=== PATIENT | male | born 2000 | race Caucasian/White ===

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

== ENCOUNTER 2022-01-10 19:19 | Emergency (ER) | payer OTHER ==
[2022-01-10] MEDS ORDERED: Sodium Chloride 0.9% 1000 ML 1,000 ML IV STA (19:23)
--- NOTE | 2022-01-10 19:32 | ERPHSYRPT ---
- History of Present Illness Time Seen by Provider: 01/10/22 19:28 Source: patient, EMS Exam Limitations: other (Learning disability) Physician History: Patient is a 21-year-old male with some history of anxiety, learning disability, and perhaps some slight autism. He is presenting with anxiety because he thinks he was given a vape with either pot or meth and it. He is uncertain what he smoked. He was given this vape by his aunt. He states he wishes to speak to aw enforcement. Timing/Duration: yesterday Severity: mild Associated Symptoms: other (Anxiety) Allergies/Adverse Reactions: shellfish derived Allergy (Verified 01/10/22 19:36) Home Medications: Prazosin HCl 2 mg PO HS 03/31/19 [History] Bupropion HCl [Wellbutrin Xl] 300 mg PO DAILY 12/02/20 [History] Trazodone HCl [Desyrel] 100 mg PO HS 12/02/20 [History] hydrOXYzine HCL [Hydroxyzine HCl] 50 mg PO TID PRN 07/04/21 [History] Lumateperone Tosylate [Caplyta] 42 mg PO DAILY 01/10/22 [History] amantadine HCL [Amantadine] 100 mg PO BID 01/10/22 [History] Hx Tetanus, Diphtheria Vaccination/Date Given: Yes Hx Influenza Vaccination/Date Given: No Hx Pneumococcal Vaccination/Date Given: No Travel Risk - Vaccine Status Have you recieved a Covid-19 vaccination: No Manager Trainee: Unknown - Vaccination Dates Dates if Unknown: unsure - Review of Systems Constitutional: No Fever, No Chills Eyes: No Symptoms Ears, Nose, & Throat: No Symptoms Respiratory: No Cough, No Dyspnea Cardiac: No Chest Pain, No Edema, No Syncope Abdominal/Gastrointestinal: No Abdominal Pain, No Nausea, No Vomiting, No Diarr hea Genitourinary Symptoms: No Dysuria Musculoskeletal: No Back Pain, No Neck Pain Skin: No Rash Neurological: No Dizziness, No Focal Weakness, No Sensory Changes Psychological: Drug Abuse, Anxiety, Depression, No Suicidal Ideations, No Homicidal Ideations Endocrine: No Symptoms All Other Systems: Reviewed and Negative - Past Medical History Pertinent Past Medical History: Yes Neurological History: No Pertinent History ENT History: No Pertinent History Cardiac History: No Pertinent History Respiratory History: No Pertinent History Endocrine Medical History: No Pertinent History Musculoskeletal History: No Pertinent History GI Medical History: No Pertinent History History: No Pertinent History Psycho-Social History: Bipolar Male Reproductive Disorders: No Pertinent History Other Medical History: unsure of psych diagnosis, hx of tbi, pt unsure of cause - Past Surgical History Past Surgical History: No Neuro Surgical History: No Pertinent History Cardiac: No Pertinent History Respiratory: No Pertinent History Gastrointestinal: No Pertinent History Genitourinary: No Pertinent History Musculoskeletal: No Pertinent History Male Surgical History: No Pertinent History - Social History Smoking Status: Current every day smoker How long have you smoked: 3yrs Exposure to second hand smoke: Yes Drug Use: marijuana Patient Lives Alone: No (grandmother) Significant Family History: no pertinent family hx - Nursing Vital Signs Nursing Vital Signs: Initial Vital Signs Temperature 98.7 F 01/10/22 19:20 Pulse Rate 87 01/10/22 19:20 Respiratory Rate 20 01/10/22 19:20 Blood Pressure 121/60 01/10/22 19:20 O2 Sat by Pulse Oximetry 99 01/10/22 19:20 Pain Scale Pain Intensity 0 - Physical Exam General Appearance: mild distress, alert Eye Exam: PERRL/EOMI, eyes nml inspection Ears, Nose, Throat Exam: normal ENT inspection, TMs normal, pharynx normal, moist mucous membranes Neck Exam: normal inspection, non-tender, supple, full range of motion Respiratory Exam: normal breath sounds, lungs clear, No respiratory distress Cardiovascular Exam: regular rate/rhythm, normal heart sounds, normal peripheral pulses Gastrointestinal/Abdomen Exam: soft, normal bowel sounds, No tenderness, No mass Back Exam: normal inspection, normal range of motion, No CVA tenderness, No vertebral tenderness Extremity Exam: normal inspection, normal range of motion, pelvis stable Neurologic Exam: alert, oriented x 3, cooperative, nml cerebellar function, nml station & gait, sensation nml, agitation, other (Very anxious), No motor deficits Skin Exam: normal color, warm, dry, No rash Lymphatic Exam: No adenopathy SpO2 Interpretation: normal SpO2: 99 O2 Delivery: Room Air - Course Nursing assessment & vital signs reviewed: Yes Ordered Tests: Active Orders 24 hr Category Date Time Status EKG-ER Only STAT Care 01/10/22 19:23 Active IV Insertion STAT Care 01/10/22 19:47 Active ACETAMINOPHEN Stat Lab 01/10/22 20:05 Completed CBC W DIFF Stat Lab 01/10/22 20:05 Completed CMP Stat Lab 01/10/22 20:05 Completed SALICYLATE Stat Lab 01/10/22 20:05 Completed UA W/RFX CULTURE Stat Lab 01/10/22 19:47 Completed Urine Triage Profile Stat Lab 01/10/22 19:47 Completed Medication Summary Discontinued Medications Generic Name Dose Route Start Last Admin Trade Name Benji PRN Reason Stop Dose Admin Sodium Chloride 1,000 mls @ 999 mls/hr 01/10/22 19:23 01/10/22 20:41 Sodium Chloride 0.9% 1000 Ml IV 01/10/22 20:23 Infused .Q1H1M STA Infusion Sodium Chloride Confirm 01/10/22 19:37 Sodium Chloride 0.9% 1000 Ml Administered 01/10/22 19:38 Dose 1,000 mls @ ud .ROUTE .STK-MED ONE Lab/Rad Data: Laboratory Result Diagrams 01/10/22 20:05 01/10/22 20:05 Laboratory Results 01/10/22 01/10/22 01/10/22 Range/Units 20:05 20:05 19:47 WBC 8.1 (4.0-10.5) x10^3/uL RBC 4.83 (4.1-5.6) x10^6/uL Hgb 12.6 (12.5-18.0) g/dL Hct 39.3 L (42-50) % MCV 81.4 (78-100) fL MCH 26.1 (26-32) pg MCHC 32.1 (32-36) g/dL RDW 12.0 (11.5-14.0) % Plt Count 298 (150-450) x10^3/uL MPV 9.4 (7.5-11.0) fL Gran % 61.0 (36.0-66.0) % Immature Gran % (Auto) 0.2 (0.00-0.4) % Nucleat RBC Rel Count 0.0 (0.00-0.1) % Eos # (Auto) 0.18 (0-0.5) x10^3/uL Immature Gran # (Auto) 0.02 (0.00-0.03) x10^3u/L Absolute Lymphs (auto) 1.89 (1.0-4.6) x10^3/uL Absolute Monos (auto) 1.04 (0.0-1.3) x10^3/uL Absolute Nucleated RBC 0.00 (0.00-0.01) x10^3u/L Lymphocytes % 23.3 L (24.0-44.0) % Monocytes % 12.8 H (0.0-12.0) % Eosinophils % 2.2 (0.00-5.0) % Basophils % 0.5 (0.0-0.4) % Absolute Granulocytes 4.93 (1.4-6.9) x10^3/uL Basophils # 0.04 (0-0.4) x10^3/uL Sodium 140 (137-145) mmol/L Potassium 3.7 (3.5-5.1) mmol/L Chloride 103 (98-107) mmol/L Carbon Dioxide 28 (22-30) mmol/L Anion Gap 12.7 (5-15) MEQ/L BUN 5 L (9-20) mg/dL Creatinine 0.87 (0.66-1.25) mg/dL Estimated GFR > 60.0 ML/MIN Glucose 85 (74-106) mg/dL Calcium 9.3 (8.4-10.2) mg/dL Total Bilirubin 0.70 (0.2-1.3) mg/dL AST 60 H (17-59) U/L ALT 112 H (0-50) U/L Alkaline Phosphatase 103 (38-126) U/L Serum Total Protein 7.2 (6.3-8.2) g/dL Albumin 4.5 (3.5-5.0) g/dL Urinalys Dipstick Clnc MAIN LAB Urine Color DARK YELLOW (YELLOW) Urine Appearance SLIGHTLY CLOUDY A (CLEAR) Urine pH 5.5 (5-6) Ur Specific [place] >=1.030 A (1.005-1.025) POC Urine Protein Conf 30 A (Negative) Urine Ketones TRACE A (NEGATIVE) Urine Nitrite NEGATIVE (NEGATIVE) Urine Bilirubin MODERATE A (NEGATIVE) Urine Urobilinogen 1 A (0-1) mg/dL Urine Leukocytes NEGATIVE (NEGATIVE) Urine WBC (Auto) 3-5 A (0-5) /HPF Urine RBC (Auto) 0-2 (0-2) /HPF U Epithel Cells (Auto) NONE (FEW) /HPF Urine Bacteria (Auto) RARE (NEGATIVE) /HPF Urine RBC NEGATIVE (0-5) Juanjo/ul Calcium Oxalate Crystal 6-10 A (NEGATIVE) /HPF Urine Mucus (Auto) MANY A (NEGATIVE) /HPF Urine Sperm (Auto) PRESENT A (NEGATIVE) /HPF Ur Culture Indicated? NO Urine Glucose NEGATIVE (NEGATIVE) mg/dL Salicylates < 1.0 L (2-20) mg/dL Urine Opiates Level (NEGATIVE) Ur Methadone (NEGATIVE) Acetaminophen < 10 L (10-30) ug/ml Urine Barbiturates (NEGATIVE) Ur Phencyclidine (PCP) (NEGATIVE) Urine Amphetamine (NEGATIVE) U Benzodiazepine Level (NEGATIVE) Urine Cocaine (NEGATIVE) Urine Marijuana (THC) (NEGATIVE) 01/10/22 Range/Units 19:47 WBC (4.0-10.5) x10^3/uL RBC (4.1-5.6) x10^6/uL Hgb (12.5-18.0) g/dL Hct (42-50) % MCV (78-100) fL MCH (26-32) pg MCHC (32-36) g/dL RDW (11.5-14.0) % Plt Count (150-450) x10^3/uL MPV (7.5-11.0) fL Gran % (36.0-66.0) % Immature Gran % (Auto) (0.00-0.4) % Nucleat RBC Rel Count (0.00-0.1) % Eos # (Auto) (0-0.5) x10^3/uL Immature Gran # (Auto) (0.00-0.03) x10^3u/L Absolute Lymphs (auto) (1.0-4.6) x10^3/uL Absolute Monos (auto) (0.0-1.3) x10^3/uL Absolute Nucleated RBC (0.00-0.01) x10^3u/L Lymphocytes % (24.0-44.0) % Monocytes % (0.0-12.0) % Eosinophils % (0.00-5.0) % Basophils % (0.0-0.4) % Absolute Granulocytes (1.4-6.9) x10^3/uL Basophils # (0-0.4) x10^3/uL Sodium (137-145) mmol/L Potassium (3.5-5.1) mmol/L Chloride (98-107) mmol/L Carbon Dioxide (22-30) mmol/L Anion Gap (5-15) MEQ/L BUN (9-20) mg/dL Creatinine (0.66-1.25) mg/dL Estimated GFR ML/MIN Glucose (74-106) mg/dL Calcium (8.4-10.2) mg/dL Total Bilirubin (0.2-1.3) mg/dL AST (17-59) U/L ALT (0-50) U/L Alkaline Phosphatase (38-126) U/L Serum Total Protein (6.3-8.2) g/dL Albumin (3.5-5.0) g/dL Urinalys Dipstick Clnc Urine Color (YELLOW) Urine Appearance (CLEAR) Urine pH (5-6) Ur Specific [place] (1.005-1.025) POC Urine Protein Conf (Negative) Urine Ketones (NEGATIVE) Urine Nitrite (NEGATIVE) Urine Bilirubin (NEGATIVE) Urine Urobilinogen (0-1) mg/dL Urine Leukocytes (NEGATIVE) Urine WBC (Auto) (0-5) /HPF Urine RBC (Auto) (0-2) /HPF U Epithel Cells (Auto) (FEW) /HPF Urine Bacteria (Auto) (NEGATIVE) /HPF Urine RBC (0-5) Juanjo/ul Calcium Oxalate Crystal (NEGATIVE) /HPF Urine Mucus (Auto) (NEGATIVE) /HPF Urine Sperm (Auto) (NEGATIVE) /HPF Ur Culture Indicated? Urine Glucose (NEGATIVE) mg/dL Salicylates (2-20) mg/dL Urine Opiates Level NEGATIVE (NEGATIVE) Ur Methadone NEGATIVE (NEGATIVE) Acetaminophen (10-30) ug/ml Urine Barbiturates NEGATIVE (NEGATIVE) Ur Phencyclidine (PCP) NEGATIVE (NEGATIVE) Urine Amphetamine NEGATIVE (NEGATIVE) U Benzodiazepine Level NEGATIVE (NEGATIVE) Urine Cocaine NEGATIVE (NEGATIVE) Urine Marijuana (THC) POSITIVE (NEGATIVE) - Progress Progress: improved - Departure Departure Disposition: Home Clinical Impression: Marijuana use, Anxiety Condition: Stable Critical Care Time: No Referrals: RAYRAY LOPEZ [Primary Care Provider] - Follow up/PCP as directed Instructions: Anxiety, Adult (DC)
[2022-01-10] MEDS ORDERED: Sodium Chloride 0.9% 1000 ML 1,000 ML ONE (19:37)
[2022-01-10 20:14] LABS: Absolute Neutrophil Ct (ANC) 4.93 x10^3/uL (1.4-6.9); Basophil (Absolute #) 0.04 x10^3/uL (0-0.4); Eosinophil % 2.2 % (0.00-5.0); Eosinophil (Absolute #) 0.18 x10^3/uL (0-0.5); Hematocrit 39.3 % (42-50); Hemoglobin 12.6 g/dL (12.5-18.0); Lymphocyte (Absolute #) 1.89 x10^3/uL (1.0-4.6); Lymphocytes % 23.3 % (24.0-44.0); Mean Cell Volume 81.4 fL (78-100); Mean Corpuscular Hemoglobin 26.1 pg (26-32); Mean Corpuscular Hgb Concent. 32.1 g/dL (32-36); Mean Platelet Volume 9.4 fL (7.5-11.0); Monocyte (Absolute #) 1.04 x10^3/uL (0.0-1.3); Monocytes % 12.8 % (0.0-12.0); Platelet Count 298 x10^3/uL (150-450); Red Blood Count 4.83 x10^6/uL (4.1-5.6); White Blood Count 8.1 x10^3/uL (4.0-10.5)
[2022-01-10 20:32] LABS: Amphetamine,Urine NEGATIVE (NEGATIVE); Barbiturate,Urine NEGATIVE (NEGATIVE); Benzodiazepine,Urine NEGATIVE (NEGATIVE); Cocaine,Urine NEGATIVE (NEGATIVE); Methadone,Urine NEGATIVE (NEGATIVE); Opiate,Urine NEGATIVE (NEGATIVE); PCP,Urine NEGATIVE (NEGATIVE); THC,Urine POSITIVE (NEGATIVE)
[2022-01-10 20:33] LABS: Bacteria RARE /HPF (NEGATIVE); Mucus MANY /HPF (NEGATIVE); RBC 0-2 /HPF (0-2); Sperm PRESENT /HPF (NEGATIVE)
[2022-01-10 20:33] LABS: ACETAMINOPHEN < 10 ug/ml (10-30); ALBUMIN 4.5 g/dL (3.5-5.0); ALKALINE PHOSPHATASE 103 U/L (38-126); ANION GAP 12.7 MEQ/L (5-15); BLOOD UREA NITROGEN 5 mg/dL (9-20); CHLORIDE 103 mmol/L (98-107); Calcium 9.3 mg/dL (8.4-10.2); Carbon Dioxide 28 mmol/L (22-30); Creatinine 1 0.87 mg/dL (0.66-1.25); EST GLOMERULAR FILTRATION RATE > 60.0 ML/MIN; Glucose 85 mg/dL (74-106); Potassium 3.7 mmol/L (3.5-5.1); SALICYLATE < 1.0 mg/dL (2-20); SGOT/AST 60 U/L (17-59); SGPT/ALT 112 U/L (0-50); SODIUM 140 mmol/L (137-145); Total Protein 7.2 g/dL (6.3-8.2)
[2022-01-10 20:34] LABS: Appearance SLIGHTLY CLOUDY (CLEAR); Bilirubin MODERATE (NEGATIVE); Dipstick done @ ? MAIN LAB; Glucose NEGATIVE (NEGATIVE); Ketones TRACE (NEGATIVE); Nitrite NEGATIVE (NEGATIVE); Ph 5.5 (5-6); Protein,Urine Dip 30 (Negative); RBC NEGATIVE Ery/ul (0-5); Specific Gravity >=1.030 (1.005-1.025); Urobilinogen 1 mg/dL (0-1)
[2022-01-10 20:36] LABS: Urine Cultured Indicated? NO
[2022-01-10 21:01] VITALS: BP 134/49; PULSE 78; O2SAT 98
== END 2022-01-10 21:06 | disposition home or self-care (01) ==
LOC: ED 19:19
DX: F41.9 Anxiety disorder, unspecified (principal); F12.90 Cannabis use, unspecified, uncomplicated; Z72.0 Tobacco use; Z79.899 Other long term (current) drug therapy; Z28.310 Unvaccinated for COVID-19
CPT/HCPCS: 36000; 36415; 80053; 80307; 81015; 85025; 93005; 96360; 99284

== ENCOUNTER 2022-03-13 07:02 | Emergency (ER) | payer OTHER ==
[2022-03-13 07:19] VITALS: O2SAT 98
--- NOTE | 2022-03-13 07:54 | ERPHSYRPT ---
- History of Present Illness Source: patient Exam Limitations: no limitations Patient Subjective Stated Complaint: Pt states "I pulled a scab out of my nose on the right side and I can smell the infection. It had yellow on it." Triage Nursing Assessment: Pt presented alert and oriented X 3, skin pwd.pt ambulates with an upright steady gait able to speak in full sentences. pt in no apparent respiratory distress. Physician History: 21 yo wm w R nares pain after picking a scab yesterday. Pt called PCP who states that he should come to the ER and get checked out. Pain is mild. He denies fever/cough/coryza/nausea/vomiting/diarrhea/ESPINOZA/trauma. Timing/Duration: abrupt onset ENT Location: nose Prearrival Treatment: no prearrival treatment Modifying Factors: Improves With: other (Picking) Associated Symptoms: denies symptoms, No nasal congestion/drainage, No nasal foreign body Allergies/Adverse Reactions: shellfish derived Allergy (Verified 01/10/22 19:36) Home Medications: Prazosin HCl 2 mg PO HS 03/31/19 [History] Bupropion HCl [Wellbutrin Xl] 300 mg PO DAILY 12/02/20 [History] Trazodone HCl [Desyrel] 100 mg PO HS 12/02/20 [History] hydrOXYzine HCL [Hydroxyzine HCl] 50 mg PO TID PRN 07/04/21 [History] Lumateperone Tosylate [Caplyta] 42 mg PO DAILY 01/10/22 [History] amantadine HCL [Amantadine] 100 mg PO BID 01/10/22 [History] Hx Tetanus, Diphtheria Vaccination/Date Given: Yes Hx Influenza Vaccination/Date Given: No Hx Pneumococcal Vaccination/Date Given: No Immunizations Up to Date: Yes Travel Risk - International Travel Have you traveled outside of the country in past 3 weeks: No - Coronavirus Screening Are you exhibiting any of the following symptoms?: No Close contact with a COVID-19 positive Pt in past 14-21 Days: No - Vaccine Status Have you recieved a Covid-19 vaccination: No 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 - Vaccination Dates Dates if Unknown: unsure - Review of Systems Constitutional: No Symptoms Eyes: No Symptoms Respiratory: No Symptoms Cardiac: No Symptoms Abdominal/Gastrointestinal: No Symptoms Genitourinary Symptoms: No Symptoms Musculoskeletal: No Symptoms Skin: No Symptoms Neurological: No Symptoms Psychological: No Symptoms Endocrine: No Symptoms Hematologic/Lymphatic: No Symptoms Immunological/Allergic: No Symptoms - Past Medical History Pertinent Past Medical History: Yes Neurological History: No Pertinent History ENT History: No Pertinent History Cardiac History: No Pertinent History Respiratory History: No Pertinent History Endocrine Medical History: No Pertinent History Musculoskeletal History: No Pertinent History GI Medical History: No Pertinent History History: No Pertinent History Psycho-Social History: Bipolar Male Reproductive Disorders: No Pertinent History Other Medical History: unsure of psych diagnosis, hx of tbi, pt unsure of cause - Past Surgical History Past Surgical History: No Neuro Surgical History: No Pertinent History Cardiac: No Pertinent History Respiratory: No Pertinent History Gastrointestinal: No Pertinent History Genitourinary: No Pertinent History Musculoskeletal: No Pertinent History Male Surgical History: No Pertinent History - Social History Smoking Status: Current every day smoker How long have you smoked: 3yrs Exposure to second hand smoke: Yes Drug Use: marijuana Patient Lives Alone: No (grandmother) Significant Family History: no pertinent family hx - Nursing Vital Signs Nursing Vital Signs: Initial Vital Signs Temperature 98.5 F 03/13/22 07:16 Pulse Rate 76 03/13/22 07:16 Respiratory Rate 20 03/13/22 07:16 Blood Pressure 130/66 03/13/22 07:16 O2 Sat by Pulse Oximetry 98 03/13/22 07:16 Pain Scale Pain Intensity 0 WNL - Physical Exam General Appearance: no apparent distress Eye Exam: bilateral eye: normal inspection, PERRL, EOMI Ear Exam: bilateral ear: auricle normal, canal normal, TM normal Nasal Exam: dried blood (Very small area R lateral nostril which is slightly edematous and scabbed over) Throat Exam: normal, pharynx normal Neck Exam: normal inspection, non-tender, supple, full range of motion, trachea midline Cardiovascular/Respiratory Exam: normal breath sounds, regular rate/rhythm, heart sounds normal Abdominal Exam: non-tender, soft, no organomegaly Neurologic Exam: alert, oriented x 3, cooperative, basin tender II-XII nml as tested, normal mood/affect, nml cerebellar function, nml station & gait, sensation nml Skin Exam: normal color, warm, dry SpO2 Interpretation: normal SpO2: 98 O2 Delivery: Room Air - Course Nursing assessment & vital signs reviewed: Yes - Progress Progress Note: 03/13/22 07:57 Pt w stable papule R lateral nares which is stable. Pain/scabbing most likely due to pt picking nose/lesion. 03/13/22 08:19 Counseled pt/family regarding: diagnosis, need for follow-up - Departure Departure Disposition: Home Clinical Impression: Nasal abrasion Condition: Stable Critical Care Time: No Referrals: RAYRAY LOPEZ [ACTIVE STAFF] - Follow up/PCP as directed Additional Instructions: Do not pick nose Apply Bactroban to right nostril twice a day for 7-10 days Follow up with your family MD as needed Return to ER for worsening of condition Irrigate right nostril with saline 1-2 times a day Prescriptions: Mupirocin [Bactroban OINTMENT] 1 applic INTRANASAL BID 10 Days #22 mg pe
[2022-03-13 08:02] VITALS: BP 120/64; PULSE 72
== END 2022-03-13 08:17 | disposition home or self-care (01) ==
LOC: ED 07:02
DX: S00.31XA Abrasion of nose, initial encounter (principal); Z79.899 Other long term (current) drug therapy; Z28.310 Unvaccinated for COVID-19; Z72.0 Tobacco use
CPT/HCPCS: 99281

== ENCOUNTER 2022-08-27 21:59 | Emergency (ER) | payer OTHER ==
[2022-08-27 22:17] VITALS: O2SAT 97
[2022-08-27 22:25] LABS: Absolute Neutrophil Ct (ANC) 7.47 x10^3/uL (1.4-6.9); BASOPHIL % 0.4 % (0.0-0.4); Basophil (Absolute #) 0.05 x10^3/uL (0-0.4); Eosinophil % 2.1 % (0.00-5.0); Eosinophil (Absolute #) 0.25 x10^3/uL (0-0.5); Hematocrit 43.7 % (42-50); Hemoglobin 14.3 g/dL (12.5-18.0); IMMATURE GRAN # 0.06 x10^3u/L (0.00-0.03); IMMATURE GRAN % 0.5 % (0.00-0.4); Lymphocyte (Absolute #) 3.22 x10^3/uL (1.0-4.6); Lymphocytes % 27.1 % (24.0-44.0); Mean Cell Volume 82.1 fL (78-100); Mean Corpuscular Hemoglobin 26.9 pg (26-32); Mean Corpuscular Hgb Concent. 32.7 g/dL (32-36); Mean Platelet Volume 9.9 fL (7.5-11.0); Monocyte (Absolute #) 0.83 x10^3/uL (0.0-1.3); Neutrophil % 62.9 % (36.0-66.0); Platelet Count 338 x10^3/uL (150-450); Red Blood Count 5.32 x10^6/uL (4.1-5.6); Red Cell Distribution Width 13.5 % (11.5-14.0); White Blood Count 11.9 x10^3/uL (4.0-10.5)
[2022-08-27 22:38] LABS: ACETAMINOPHEN < 10 ug/ml (10-30); ALBUMIN 4.6 g/dL (3.5-5.0); ALKALINE PHOSPHATASE 79 U/L (38-126); ANION GAP 14.8 MEQ/L (5-15); BLOOD UREA NITROGEN 6 mg/dL (9-20); CHLORIDE 105 mmol/L (98-107); Calcium 8.9 mg/dL (8.4-10.2); Carbon Dioxide 23 mmol/L (22-30); Creatinine 1 0.73 mg/dL (0.66-1.25); EST GLOMERULAR FILTRATION RATE > 60.0 ML/MIN; ETHYL ALCOHOL < 10 mg/dL (0-10); Glucose 105 mg/dL (74-106); Potassium 3.4 mmol/L (3.5-5.1); SALICYLATE < 1.0 mg/dL (2-20); SGOT/AST 31 U/L (17-59); SGPT/ALT 31 U/L (0-50); SODIUM 140 mmol/L (137-145); Total Protein 7.9 g/dL (6.3-8.2)
[2022-08-27 22:59] LABS: Appearance Cloudy (Clear); Bacteria None Seen /HPF (None Seen); Bilirubin Negative (Negative); Blood Negative (Negative); Epithelial Cells None Seen /HPF (None Seen); Glucose, Urine Negative (Negative); Hyaline Casts NONE SEEN /LPF (0-2); Ketones Negative (Negative); Leukocyte Esterase Negative (Negative); Nitrite Negative (Negative); Protein,Urine Dip Trace (Negative); RBC 21-50 /HPF (0-5); Specific Gravity >=1.030 (1.005-1.030)
[2022-08-27 23:03] LABS: Amphetamine,Urine NEGATIVE (NEGATIVE); Barbiturate,Urine NEGATIVE (NEGATIVE); Benzodiazepine,Urine NEGATIVE (NEGATIVE); Cocaine,Urine NEGATIVE (NEGATIVE); Methadone,Urine NEGATIVE (NEGATIVE); Opiate,Urine NEGATIVE (NEGATIVE); PCP,Urine NEGATIVE (NEGATIVE); THC,Urine POSITIVE (NEGATIVE)
[2022-08-27 23:04] LABS: ADD URINE CULTURE? NO (NO)
--- NOTE | 2022-08-27 23:16 | ERPHSYRPT ---
- History of Present Illness Time Seen by Provider: 08/27/22 22:02 Source: patient, police Exam Limitations: no limitations Patient Subjective Stated Complaint: police states that pt is here on a ed [facility] Triage Nursing Assessment: pt ambulated into the er; pt is axo x3; skin PDW; abrasions present to left forearm; no respiratory distress present; hypertensive; tachycardic Physician History: 22 years old male with a history of anxiety/depression, multiple psychiatric admissions is brought in the ER by PD with aggressive behavior. Patient reports he has been homeless lately and living in a car with his mom. He is frustrated, had arguments with his mother and had some suicidal/homicidal comments. Patient reports cutting his arm with a knife. Multiple superficial cuts noted. Denies any specific plan of suicide/homicide. Denies any drug use. Patient reports lately he has been out of his medications and his behavior not well controlled. Timing/Duration: today Severity of Symptoms-Max: severe Severity of Symptoms-Current: mild Context related to: parent Suicidal thoughts: gesture Associated Symptoms: angry, agitated, anxiety, frustrated Previous symptoms: same symptoms as today Allergies/Adverse Reactions: shellfish derived Allergy (Verified 01/10/22 19:36) Home Medications: Prazosin HCl 2 mg PO HS 03/31/19 [History] Trazodone HCl [Desyrel] 100 mg PO HS 12/02/20 [History] hydrOXYzine HCL [Hydroxyzine HCl] 50 mg PO TID PRN 07/04/21 [History] Lumateperone Tosylate [Caplyta] 42 mg PO DAILY 01/10/22 [History] amantadine HCL [Amantadine] 100 mg PO BID 01/10/22 [History] Haloperidol [Haldol] 5 mg PO BID 08/27/22 [History] Hx Tetanus, Diphtheria Vaccination/Date Given: Yes Hx Influenza Vaccination/Date Given: No Hx Pneumococcal Vaccination/Date Given: No Travel Risk - International Travel Have you traveled outside of the country in past 3 weeks: No - Coronavirus Screening Are you exhibiting any of the following symptoms?: No Close contact with a COVID-19 positive Pt in past 14-21 Days: No - Vaccine Status Have you recieved a Covid-19 vaccination: No Blocker Hand: Unknown - Vaccination Dates Dates if Unknown: unsure - Past Medical History Pertinent Past Medical History: Yes Neurological History: No Pertinent History ENT History: No Pertinent History Cardiac History: No Pertinent History Respiratory History: No Pertinent History Endocrine Medical History: No Pertinent History Musculoskeletal History: No Pertinent History GI Medical History: No Pertinent History History: No Pertinent History Psycho-Social History: Bipolar Male Reproductive Disorders: No Pertinent History Other Medical History: unsure of psych diagnosis, hx of tbi, pt unsure of cause - Past Surgical History Past Surgical History: No Neuro Surgical History: No Pertinent History Cardiac: No Pertinent History Respiratory: No Pertinent History Gastrointestinal: No Pertinent History Genitourinary: No Pertinent History Musculoskeletal: No Pertinent History Male Surgical History: No Pertinent History - Social History Smoking Status: Current every day smoker How long have you smoked: 3yrs Exposure to second hand smoke: Yes Drug Use: marijuana Patient Lives Alone: No (grandmother) Significant Family History: no pertinent family hx - Review of Systems Constitutional: No Symptoms Eyes: No Symptoms Ears, Nose, & Throat: No Symptoms Respiratory: No Symptoms Cardiac: No Symptoms Abdominal/Gastrointestinal: No Symptoms Genitourinary Symptoms: No Symptoms Musculoskeletal: No Symptoms Skin: No Symptoms Neurological: No Symptoms Psychological: Anxiety, Depression, Suicidal Ideations, Homicidal Ideations, Mood Changes Endocrine: No Symptoms Hematologic/Lymphatic: No Symptoms Immunological/Allergic: No Symptoms - Nursing Vital Signs Nursing Vital Signs: Initial Vital Signs Temperature 98.4 F 08/27/22 22:05 Pulse Rate 106 H 08/27/22 22:05 Respiratory Rate 18 08/27/22 22:05 Blood Pressure 163/92 08/27/22 22:05 O2 Sat by Pulse Oximetry 97 08/27/22 22:05 Pain Scale Pain Intensity 0 - Physical Exam General Appearance: no apparent distress, alert, anxiety Eyes, Ears, Nose, Throat Exam: normal ENT inspection Neck Exam: normal inspection, non-tender, supple, full range of motion Respiratory Exam: normal breath sounds, lungs clear Cardiovascular Exam: regular rate/rhythm, normal heart sounds Gastrointestinal/Abdominal Exam: soft, normal bowel sounds, No tenderness Extremities Exam: normal inspection, normal range of motion Current Suicidality: denies suicide plan 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, calm, counter 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 tested, oriented x 3, No normal mood/affect Appearance: appropriate appearance, appropriate insight, neat, no memory impairment Behavior/Eye Contact/Speech: alert & cooperative, cooperative, good eye contact, normal speech, avoids eye contact Thoughts/Hallucinations: normal thought pattern, no apparent hallucination Skin Exam: normal color SpO2 Interpretation: normal SpO2: 97 O2 Delivery: Room Air Ordered Tests: Medication Summary Discontinued Medications Generic Name Dose Route Start Last Admin Trade Name Freq PRN Reason Stop Dose Admin Trimethoprim/Sulfamethoxazole 1 tab 08/27/22 23:17 08/27/22 23:23 Smz/Tmp Ds Tablet 1 Tablet PO 08/27/22 23:18 Not Given STAT STA Lab/Rad Data: Laboratory Result Diagrams 08/27/22 22:21 08/27/22 22:21 Laboratory Results 08/28/22 08/27/22 08/27/22 Range/Units 00:05 22:21 22:21 WBC 11.9 H (4.0-10.5) x10^3/uL RBC 5.32 (4.1-5.6) x10^6/uL Hgb 14.3 (12.5-18.0) g/dL Hct 43.7 (42-50) % MCV 82.1 (78-100) fL MCH 26.9 (26-32) pg MCHC 32.7 (32-36) g/dL RDW 13.5 (11.5-14.0) % Plt Count 338 (150-450) x10^3/uL MPV 9.9 (7.5-11.0) fL Gran % 62.9 (36.0-66.0) % Immature Gran % (Auto) 0.5 H (0.00-0.4) % Nucleat RBC Rel Count 0.0 (0.00-0.1) % Eos # (Auto) 0.25 (0-0.5) x10^3/uL Immature Gran # (Auto) 0.06 H (0.00-0.03) x10^3u/L Absolute Lymphs (auto) 3.22 (1.0-4.6) x10^3/uL Absolute Monos (auto) 0.83 (0.0-1.3) x10^3/uL Absolute Nucleated RBC 0.00 (0.00-0.01) x10^3u/L Lymphocytes % 27.1 (24.0-44.0) % Monocytes % 7.0 (0.0-12.0) % Eosinophils % 2.1 (0.00-5.0) % Basophils % 0.4 (0.0-0.4) % Absolute Granulocytes 7.47 H (1.4-6.9) x10^3/uL Basophils # 0.05 (0-0.4) x10^3/uL Sodium 140 (137-145) mmol/L Potassium 3.4 L (3.5-5.1) mmol/L Chloride 105 (98-107) mmol/L Carbon Dioxide 23 (22-30) mmol/L Anion Gap 14.8 (5-15) MEQ/L BUN 6 L (9-20) mg/dL Creatinine 0.73 (0.66-1.25) mg/dL Estimated GFR > 60.0 ML/MIN Glucose 105 (74-106) mg/dL Calcium 8.9 (8.4-10.2) mg/dL Total Bilirubin 0.40 (0.2-1.3) mg/dL AST 31 (17-59) U/L ALT 31 (0-50) U/L Alkaline Phosphatase 79 (38-126) U/L Serum Total Protein 7.9 (6.3-8.2) g/dL Albumin 4.6 (3.5-5.0) g/dL Urine Color (Yellow) Urine Appearance (Clear) Urine pH (4.6-8.0) Ur Specific [place] (1.005-1.030) Urine Protein (Negative) Urine Glucose (UA) (Negative) mg/dL Urine Ketones (Negative) Urine Blood (Negative) Urine Nitrite (Negative) Urine Bilirubin (Negative) Urine Urobilinogen (0.2) mg/dL Ur Leukocyte Esterase (Negative) U Hyaline Cast (Auto) (0-2) /LPF Urine Microscopic RBC (0-5) /HPF Urine Microscopic WBC (0-5) /HPF Ur Epithelial Cells (None Seen) /HPF Urine Bacteria (None Seen) /HPF Urine Culture Reflexed (NO) Salicylates < 1.0 L (2-20) mg/dL Urine Opiates Level (NEGATIVE) Ur Methadone (NEGATIVE) Acetaminophen < 10 L (10-30) ug/ml Urine Barbiturates (NEGATIVE) Ur Phencyclidine (PCP) (NEGATIVE) Urine Amphetamine (NEGATIVE) U Benzodiazepine Level (NEGATIVE) Urine Cocaine (NEGATIVE) Urine Marijuana (THC) (NEGATIVE) Ethyl Alcohol < 10 (0-10) mg/dL Influenza Type A Ag NEGATIVE (NEGATIVE) Influenza Type B Ag NEGATIVE (NEGATIVE) RSV (PCR) NEGATIVE (NEGATIVE) SARS-CoV-2 (PCR) NEGATIVE (NEGATIVE) 08/27/22 08/27/22 Range/Units 22:04 22:04 WBC (4.0-10.5) x10^3/uL RBC (4.1-5.6) x10^6/uL Hgb (12.5-18.0) g/dL Hct (42-50) % MCV (78-100) fL MCH (26-32) pg MCHC (32-36) g/dL RDW (11.5-14.0) % Plt Count (150-450) x10^3/uL MPV (7.5-11.0) fL Gran % (36.0-66.0) % Immature Gran % (Auto) (0.00-0.4) % Nucleat RBC Rel Count (0.00-0.1) % Eos # (Auto) (0-0.5) x10^3/uL Immature Gran # (Auto) (0.00-0.03) x10^3u/L Absolute Lymphs (auto) (1.0-4.6) x10^3/uL Absolute Monos (auto) (0.0-1.3) x10^3/uL Absolute Nucleated RBC (0.00-0.01) x10^3u/L Lymphocytes % (24.0-44.0) % Monocytes % (0.0-12.0) % Eosinophils % (0.00-5.0) % Basophils % (0.0-0.4) % Absolute Granulocytes (1.4-6.9) x10^3/uL Basophils # (0-0.4) x10^3/uL Sodium (137-145) mmol/L Potassium (3.5-5.1) mmol/L Chloride (98-107) mmol/L Carbon Dioxide (22-30) mmol/L Anion Gap (5-15) MEQ/L BUN (9-20) mg/dL Creatinine (0.66-1.25) mg/dL Estimated GFR ML/MIN Glucose (74-106) mg/dL Calcium (8.4-10.2) mg/dL Total Bilirubin (0.2-1.3) mg/dL AST (17-59) U/L ALT (0-50) U/L Alkaline Phosphatase (38-126) U/L Serum Total Protein (6.3-8.2) g/dL Albumin (3.5-5.0) g/dL Urine Color Dark Yellow (Yellow) Urine Appearance Cloudy A (Clear) Urine pH 5.0 (4.6-8.0) Ur Specific [place] >=1.030 A (1.005-1.030) Urine Protein Trace A (Negative) Urine Glucose (UA) Negative (Negative) mg/dL Urine Ketones Negative (Negative) Urine Blood Negative (Negative) Urine Nitrite Negative (Negative) Urine Bilirubin Negative (Negative) Urine Urobilinogen 1.0 A (0.2) mg/dL Ur Leukocyte Esterase Negative (Negative) U Hyaline Cast (Auto) NONE SEEN (0-2) /LPF Urine Microscopic RBC 21-50 A (0-5) /HPF Urine Microscopic WBC 6-10 A (0-5) /HPF Ur Epithelial Cells None Seen (None Seen) /HPF Urine Bacteria None Seen (None Seen) /HPF Urine Culture Reflexed NO (NO) Salicylates (2-20) mg/dL Urine Opiates Level NEGATIVE (NEGATIVE) Ur Methadone NEGATIVE (NEGATIVE) Acetaminophen (10-30) ug/ml Urine Barbiturates NEGATIVE (NEGATIVE) Ur Phencyclidine (PCP) NEGATIVE (NEGATIVE) Urine Amphetamine NEGATIVE (NEGATIVE) U Benzodiazepine Level NEGATIVE (NEGATIVE) Urine Cocaine NEGATIVE (NEGATIVE) Urine Marijuana (THC) POSITIVE (NEGATIVE) Ethyl Alcohol (0-10) mg/dL Influenza Type A Ag (NEGATIVE) Influenza Type B Ag (NEGATIVE) RSV (PCR) (NEGATIVE) SARS-CoV-2 (PCR) (NEGATIVE) - Progress Progress: unchanged Progress Note: 08/27/22 23:25 22 years old male with a history of anxiety/depression, multiple psychiatric admissions is brought in the ER by PD with aggressive behavior. Patient reports he has been homeless lately and living in a car with his mom. He is frustrated, had arguments with his mother and had some suicidal/homicidal comments. Patient reports cutting his arm with a knife. Multiple superficial cuts noted. Denies any specific plan of suicide/homicide. Denies any drug use. Patient reports lately he has been out of his medications and his behavior not well controlled. Patient is Eded prior to arrival and has bed available for transfer at [facility]. Lab work fairly unremarkable. He is medically cleared and being transferred there for further evaluation. Counseled pt/family regarding: lab results, diagnosis, need for follow-up, smoking cessation - Departure Departure Disposition: Transfer Clinical Impression: Aggressive behavior of adult Condition: Stable Critical Care Time: No Referrals: DOCTOR,NO FAMILY [Primary Care Provider] - Follow up/PCP as directed
[2022-08-27] MEDS ORDERED: BACTRIM DS TABLET PO STA (23:17)
[2022-08-28 00:52] LABS: INFLUENZA A NEGATIVE (NEGATIVE); INFLUENZA B NEGATIVE (NEGATIVE); RESPIRATORY SYNCTIAL VIRUS NEGATIVE (NEGATIVE); SARS-CoV-2 Xpert Express NEGATIVE (NEGATIVE)
[2022-08-28 01:38] VITALS: BP 137/68; PULSE 84
== END 2022-08-28 02:04 ==
LOC: ED 21:59
DX: R46.89 Other symptoms and signs involving appearance and behavior (principal); R45.1 Restlessness and agitation; R45.4 Irritability and anger; Z59.02 Unsheltered homelessness; Z62.820 Parent-biological child conflict; Z79.899 Other long term (current) drug therapy; Z72.0 Tobacco use
CPT/HCPCS: 0241U; 36415; 80053; 80143; 80179; 80307; 81001; 82077; 85025; 99284

== ENCOUNTER 2023-08-26 20:34 | Emergency (ER) | payer OTHER ==
[2023-08-26 20:53] VITALS: RESP 18; TEMP 98.9
[2023-08-26 21:09] VITALS: BP 135/70; PULSE 94; O2SAT 98
--- NOTE | 2023-08-26 21:16 | ERPHSYRPT ---
- History of Present Illness Time Seen by Provider: 08/26/23 20:35 Source: patient Exam Limitations: no limitations Patient Subjective Stated Complaint: pt states he fell in the [place] and heard a pop in his ankle Triage Nursing Assessment: pt came into the er via ambulance; pt transfer to cot per self; c/o rt ankle injury; pt states 10/10 pain to rt ankle; swelling to medal rt ankle; strong rt pedal pulse; good cap refill to RLE; skin PDW; no re spiratory distress present; vitals wnl Physician History: 23-year-old male presented in the ER with complains of right ankle pain and swelling after he fell and twisted his right ankle earlier today. Patient reports moderate to severe sharp pain in the medial and lateral malleoli are area, worsens with movements and weightbearing and better with being still. Not numbness or tingling of the toes. Allergies/Adverse Reactions: shellfish derived Allergy (Verified 08/26/23 20:38) Home Medications: Famotidine 20 mg [Pepcid 20 MG] 20 mg PO BID 08/26/23 [History] Melatonin 10 mg PO HS 08/26/23 [History] Hx Tetanus, Diphtheria Vaccination/Date Given: Yes Hx Influenza Vaccination/Date Given: No Hx Pneumococcal Vaccination/Date Given: No Travel Risk - International Travel Have you traveled outside of the country in past 3 weeks: No - Emerging Infectious Disease Are you exhibiting symptoms associated with any current EIDs: No - Review of Systems Constitutional: No Symptoms Respiratory: No Symptoms Cardiac: No Symptoms Abdominal/Gastrointestinal: No Symptoms Musculoskeletal: Injury, Joint Pain, Joint Swelling Neurological: No Symptoms Endocrine: No Symptoms Hematologic/Lymphatic: No Symptoms - Past Medical History Pertinent Past Medical History: Yes Neurological History: No Pertinent History ENT History: No Pertinent History Cardiac History: No Pertinent History Respiratory History: No Pertinent History Endocrine Medical History: No Pertinent History Musculoskeletal History: No Pertinent History GI Medical History: No Pertinent History History: No Pertinent History Psycho-Social History: Bipolar Male Reproductive Disorders: No Pertinent History Other Medical History: unsure of psych diagnosis, hx of tbi, pt unsure of cause - Past Surgical History Past Surgical History: No Neuro Surgical History: No Pertinent History Cardiac: No Pertinent History Respiratory: No Pertinent History Gastrointestinal: No Pertinent History Genitourinary: No Pertinent History Musculoskeletal: No Pertinent History Male Surgical History: No Pertinent History Significant Family History: no pertinent family hx - Social History Smoking Status: Current every day smoker How long have you smoked: 3yrs Exposure to second hand smoke: Yes Drug Use: marijuana Patient Lives Alone: No (grandmother) - Social Determinants of Health Will the patient participate in the screening: Yes Do you worry about a steady place to live?: No Do you have any problems with any of the following?: No known problems In the past 12 months,have you had to go without utilities?: No Transportation Issues: Yes Has anyone in your support network made you feel unsafe?: No Have you or anyone in your house had to go without enough: Yes - Nursing Vital Signs Nursing Vital Signs: Initial Vital Signs Temperature 98.9 F 08/26/23 20:35 Pulse Rate 87 08/26/23 20:35 Respiratory Rate 18 08/26/23 20:35 Blood Pressure 136/83 08/26/23 20:35 O2 Sat by Pulse Oximetry 99 08/26/23 20:35 Pain Scale Pain Intensity 10 - Physical Exam General Appearance: no apparent distress Neck Exam: normal inspection, full range of motion Cardiovascular/Respiratory Exam: normal breath sounds, regular rate/rhythm Back Exam: normal inspection, normal range of motion Ankle Exam: right ankle: bone tenderness (Bimalleolar), pain, soft tissue tenderness, swelling, left ankle: non-tender, normal inspection, normal range of motion, no evidence of injury Foot Exam: bilateral foot: non-tender, normal inspection, normal range of motion, no evidence of injury Neuro/Tendon Exam: normal sensation, normal motor functions, normal tendon functions Mental Status Exam: alert, oriented x 3, cooperative Skin Exam: normal color SpO2 Interpretation: normal SpO2: 98 O2 Delivery: Room Air Ordered Tests: Active Orders 24 hr Category Date Time Status ACO SDOH Referral ONCE Cons 08/26/23 20:52 Active ANKLE (3 VIEWS) Stat Exams 08/26/23 20:56 Taken Medication Summary Discontinued Medications Generic Name Dose Route Start Last Admin Trade Name Freq PRN Reason Stop Dose Admin Ibuprofen 600 mg 08/26/23 21:10 Ibuprofen 600 Mg Tablet PO 08/26/23 21:11 STAT ONE - Progress Progress: pain not gone completely Progress Note: 08/26/23 21:22 23-year-old is evaluated in the ER for right ankle pain and swelling after he twisted from a fall earlier today. Patient has bimalleolar tenderness. Intact distal neurovascular. Given ibuprofen for symptomatic relief as patient does not want any shots. Patient x-rays are negative for fracture dislocation reviewed by me, official report is pending. Placed in [facility], weightbearing as tolerated and outpatient podiatry/primary care follow-up recommended. Discussed signs symptoms of worsening needing return to ER which he seems understanding. Counseled pt/family regarding: diagnosis, need for follow-up, rad results Medical Desision Making - Diagnostic Testing Diagnostic test were ordered, analyzed, and reviewed by me: Yes Radiological Interpretation: Interpreted by me, Reviewed by me - Risk of complications The pt has a mod risk of morbidity or mortality based on: Need for prescription drug management - Departure Departure Disposition: Home Clinical Impression: Right ankle sprain Condition: Stable Critical Care Time: No Referrals: DOCTOR,NO FAMILY [Primary Care Provider] - Follow up/PCP as directed JOCE VALDIVIA DPM [ACTIVE STAFF] - Follow up/PCP as directed (call for appointment ) Instructions: Ankle Sprain ED Additional Instructions: Intermittent ice application. Weightbearing as tolerated. Tylenol/ibuprofen as needed. Follow-up with primary care/podiatry for reevaluation. Return to ER for worsening. Prescriptions: Ibuprofen 600 mg PO Q6HPRN PRN 10 Days #20 tablet PRN Reason: Pain
[2023-08-26] MEDS ORDERED: MOTRIN 600 MG ONE (21:17)
[2023-08-26] MEDS: MOTRIN 600 MG PO ONE (21:18)
--- NOTE | 2023-08-27 08:47 | XRAY ---
Indication: Pain following fall. Comparison: August 24, 2017 3 view right ankle now demonstrates tiny plantar heel spur. No other bony, articular, or soft tissue abnormalities.
== END 2023-08-26 21:54 | disposition home or self-care (01) ==
LOC: ED 20:34
DX: S93.401A Sprain of unspecified ligament of right ankle, initial encounter (principal); W19.XXXA Unspecified fall, initial encounter; Z72.0 Tobacco use; Z59.82 Transportation insecurity; Z59.41 Food insecurity
CPT/HCPCS: 73610; 99283; A9270-GY

== ENCOUNTER 2023-08-30 13:48 | Emergency (ER) | payer OTHER ==
--- NOTE | 2023-08-30 13:52 | ERPHSYRPT ---
- History of Present Illness Time Seen by Provider: 08/30/23 13:51 Historian: patient Exam Limitations: no limitations Physician History: This is an obese 23-year-old white male patient who came in by private vehicle secondary to heartburn/chest pain. Patient states he was at [id number] and ate fries and to [employer] and went home laid down and began having what he describes as heartburn. He is on famotidine medication. Patient has a history of traumatic brain injury and bipolar disorder as well as gastroesophageal reflux disease. Patient arrives to the emergency department by private vehicle not in any distress. Patient immediately states that he did not want any blood draws. Patient has no history of coronary artery disease. Timing/Duration: today Quality: burning (Substernal and central) Location: substernal, central Chest Pain Radiation: no radiation Severity of Pain-Max: mild Severity of Pain-Current: mild Modifying Factors: Improves With: nothing Associated Symptoms: denies symptoms Prior Chest Pain/Cardiac Workup: no prior chest pain, no prior cardiac workup Nitro Today/Relief: no nitro taken today Aspirin Treatment Today: no aspirin today Allergies/Adverse Reactions: shellfish derived Allergy (Verified 08/30/23 13:56) Home Medications: Melatonin 10 mg PO HS 08/26/23 [History] Hx Tetanus, Diphtheria Vaccination/Date Given: Yes Hx Influenza Vaccination/Date Given: No Hx Pneumococcal Vaccination/Date Given: No Travel Risk - International Travel Have you traveled outside of the country in past 3 weeks: No - Emerging Infectious Disease Are you exhibiting symptoms associated with any current EIDs: No - Review of Systems Constitutional: No Symptoms Eyes: No Symptoms Ears, Nose, & Throat: No Symptoms Respiratory: No Symptoms Cardiac: Chest Pain (Scribes it as a heartburn) Abdominal/Gastrointestinal: No Symptoms Genitourinary Symptoms: No Symptoms Musculoskeletal: No Symptoms Skin: No Symptoms Neurological: No Symptoms Psychological: No Symptoms Endocrine: No Symptoms Hematologic/Lymphatic: No Symptoms Immunological/Allergic: No Symptoms All Other Systems: Reviewed and Negative - Past Medical History Pertinent Past Medical History: Yes Neurological History: No Pertinent History ENT History: No Pertinent History Cardiac History: No Pertinent History Respiratory History: No Pertinent History Endocrine Medical History: No Pertinent History Musculoskeletal History: No Pertinent History GI Medical History: No Pertinent History History: No Pertinent History Psycho-Social History: Bipolar Male Reproductive Disorders: No Pertinent History Other Medical History: unsure of psych diagnosis, hx of tbi, pt unsure of cause - Past Surgical History Past Surgical History: No Neuro Surgical History: No Pertinent History Cardiac: No Pertinent History Respiratory: No Pertinent History Gastrointestinal: No Pertinent History Genitourinary: No Pertinent History Musculoskeletal: No Pertinent History Male Surgical History: No Pertinent History Significant Family History: no pertinent family hx - Social History Smoking Status: Current every day smoker How long have you smoked: 3yrs Exposure to second hand smoke: Yes Drug Use: marijuana Patient Lives Alone: No (grandmother) - Social Determinants of Health Will the patient participate in the screening: Yes Do you worry about a steady place to live?: No In the past 12 months,have you had to go without utilities?: No Transportation Issues: Yes Has anyone in your support network made you feel unsafe?: No Have you or anyone in your house had to go without enough: Yes - Nursing Vital Signs Nursing Vital Signs: Initial Vital Signs Temperature 97.5 F 08/30/23 13:49 Pulse Rate 91 H 08/30/23 13:49 Respiratory Rate 15 08/30/23 13:49 Blood Pressure 125/66 08/30/23 13:49 O2 Sat by Pulse Oximetry 97 08/30/23 13:49 Pain Scale Pain Intensity 0 - Physical Exam General Appearance: no apparent distress, alert, anxiety, obese Eye Exam: PERRL/EOMI, eyes nml inspection Ears, Nose, Throat Exam: normal ENT inspection, moist mucous membranes Neck Exam: normal inspection, non-tender, supple, full range of motion Respiratory Exam: normal breath sounds, lungs clear, airway intact, No chest tenderness, No respiratory distress Cardiovascular Exam: regular rate/rhythm, normal heart sounds, normal peripheral pulses Gastrointestinal/Abdomen Exam: soft, normal bowel sounds, No tenderness Rectal Exam: not done Back Exam: normal inspection, normal range of motion, No CVA tenderness, No vertebral tenderness Extremity Exam: normal inspection, normal range of motion, pelvis stable Neurologic Exam: alert, oriented x 3, 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, 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, nml cerebellar function, nml station & gait, sensation nml Skin Exam: normal color, warm, dry Lymphatic Exam: No adenopathy SpO2 Interpretation: normal O2 Delivery: Room Air - Course Nursing assessment & vital signs reviewed: Yes EKG Interpreted by Me: RATE (80), Sinus Rhythm, NORMAL AXIS, NORMAL INTERVALS, NORMAL QRS, NORMAL ST-T, Other (No acute ischemic changes on today's twelve-lead EKG) Ordered Tests: Active Orders 24 hr Category Date Time Status [employer]eng[employer]inter STAT Care 08/30/23 13:53 Active EKG-ER Only STAT Care 08/30/23 13:52 Active Pulse Oximetry (ED) STAT Care 08/30/23 13:52 Active Medication Summary Discontinued Medications Generic Name Dose Route Start Last Admin Trade Name Benji PRN Reason Stop Dose Admin Al Hydrox/Mg Hydrox/Simethicone Confirm 08/30/23 14:08 Mag Hydrox/Al Hydrox/Simeth 30 Ml Udcup Administered 08/30/23 14:09 Dose 30 ml .ROUTE .STK-MED ONE Aspirin 324 mg 08/30/23 13:52 Aspirin 81 Mg Tab.Chew PO 08/30/23 13:53 STAT ONE Aspirin Confirm 08/30/23 14:07 Aspirin 81 Mg Tab.Chew Administered 08/30/23 14:08 Dose 324 mg .ROUTE .STK-MED ONE Lidocaine HCl Confirm 08/30/23 14:07 Lidocaine Hcl 2% Viscous 15 Ml Udcup Administered 08/30/23 14:08 Dose 15 ml .ROUTE .STK-MED ONE Magnesium Hydroxide 45 ml 08/30/23 13:53 Mag Hydrx/Alum Hyd/Simeth/Lido 45 Ml Bottle PO 08/30/23 13:54 STAT ONE - Progress Progress: unchanged Air Movement: good Progress Note: 08/30/23 14:16 My medical decision making of moderate complexity was based on the patient's complaint and review of his past medical history. However, the patient is refusing blood draw. He did allow us to perform a twelve-lead EKG. The patient is debating on allowing us to provide him with aspirin and/or GI cocktail. He is aware, he is awake, he is alert and does not want any blood draws. He has a phobia to having his blood drawn. He was told and he appears to understand, that the lab draw is necessary to aid in determining the underlying cause to patient's chest pain. The chest pain could be due to something emergent such as a heart attack or pulmonary embolus or other emergent or nonemergent medical condition. the patient symptoms could worsen and he could . Patient states he understands and he will sign out AGAINST MEDICAL ADVICE 08/30/23 14:20 Patient signed out without medical advice and did not stop to receive his discharge instructions. Blood Culture(s) Obtained: No Antibiotics given: No Counseled pt/family regarding: diagnosis, need for follow-up Medical Desision Making - Diagnostic Testing Diagnostic test were ordered, analyzed, and reviewed by me: No - Risk of complications Minimal Risk: Minimal risk of morbidity - Departure Departure Disposition: AMA Clinical Impression: Chest pain of uncertain etiology Condition: Stable Critical Care Time: No Referrals: DOCTOR,NO FAMILY [Primary Care Provider] - Follow up/PCP as directed Additional Instructions: Return to the emergency department if symptoms worsen or you decide to undergo the full workup as discussed.
[2023-08-30 13:56] VITALS: BP 125/66; PULSE 91; RESP 15; TEMP 97.5
[2023-08-30 14:05] VITALS: O2SAT 95
[2023-08-30] MEDS ORDERED: XYLOCAINE VISCOUS 2% 15 ML CUP ONE (14:07)
[2023-08-30] MEDS ORDERED: BABY ASPIRIN 81 MG CHEW ONE (14:07)
[2023-08-30] MEDS ORDERED: MAALOX ES 30 ML UNIT DOSE ONE (14:08)
[2023-08-30] MEDS: BABY ASPIRIN 81 MG CHEW PO ONE (14:12)
[2023-08-30] MEDS: GI COCKTAIL 45 ML (Maalox/Lidocaine) PO ONE (14:12)
== END 2023-08-30 14:35 | disposition left against medical advice (07) ==
LOC: ED 13:48
DX: R07.9 Chest pain, unspecified (principal); Z79.899 Other long term (current) drug therapy; Z72.0 Tobacco use; Z59.82 Transportation insecurity; Z59.41 Food insecurity
CPT/HCPCS: 93005; 93041; 94760; 99283; A9270-GY

== ENCOUNTER 2023-09-09 03:09 | Emergency (ER) | payer OTHER ==
[2023-09-09 03:37] VITALS: TEMP 98.6
[2023-09-09 04:02] VITALS: BP 139/46; PULSE 67; RESP 17
[2023-09-09 04:03] VITALS: O2SAT 97
--- NOTE | 2023-09-09 04:03 | ERPHSYRPT ---
- History of Present Illness Time Seen by Provider: 09/09/23 03:57 Source: patient Exam Limitations: no limitations Patient Subjective Stated Complaint: anxiety, " I have been out of my medications for a month." Triage Nursing Assessment: pt ambulatory to bed by self with steady gait, pt alert and oriented x3, skin pwd, pt c/o anxiety, pt has been out of his medications for a month, pt does not know who prescribes this medication and unknown on medication name, pt denies any SI or HI, pt is refusing IVs or lab work Physician History: 23-year-old male presents to our ED for evaluation of "anxiety medication". Patient reports that he is currently homeless. Patient does not have his anxiety medication. He does not know who prescribes the medication. He does not know what medication he is on. Patient states that he is just anxious. Patient denies pain. No shortness of breath. No SI or HI. Patient is currently staying at a local hotel. The hotel cost is being paid for by a mosque. Patient normally stays with his mother but states that she is currently in rehab for an addiction. Patient reports that a police lieutenant patrol drove him here to our ED from the local hotel. Patient does not appear anxious at the moment. Portions of this note were created with voice recognition technology. There may be grammatical, spelling, punctuation or sound alike errors Timing/Duration: today Severity: mild Modifying Factors: Improves With: nothing Associated Symptoms: denies symptoms Allergies/Adverse Reactions: shellfish derived Allergy (Verified 08/30/23 13:56) Home Medications: No Reportable Medications [No Reported Medications] 09/09/23 [History] Hx Tetanus, Diphtheria Vaccination/Date Given: Yes Hx Influenza Vaccination/Date Given: No Hx Pneumococcal Vaccination/Date Given: No Travel Risk - International Travel Have you traveled outside of the country in past 3 weeks: No - Emerging Infectious Disease Are you exhibiting symptoms associated with any current EIDs: No - Review of Systems Constitutional: No Symptoms, No Fever, No Chills Eyes: No Symptoms Ears, Nose, & Throat: No Symptoms Respiratory: No Symptoms, No Cough, No Dyspnea Cardiac: No Symptoms, No Chest Pain, No Edema, No Syncope Abdominal/Gastrointestinal: No Symptoms, No Abdominal Pain, No Nausea, No Vomiting, No Diarrhea Genitourinary Symptoms: No Symptoms, No Dysuria Musculoskeletal: No Symptoms, No Back Pain, No Neck Pain Skin: No Symptoms, No Rash Neurological: No Symptoms, No Dizziness, No Focal Weakness, No Sensory Changes Psychological: No Symptoms Endocrine: No Symptoms Hematologic/Lymphatic: No Symptoms Immunological/Allergic: No Symptoms All Other Systems: Reviewed and Negative - Past Medical History Pertinent Past Medical History: Yes Neurological History: No Pertinent History ENT History: No Pertinent History Cardiac History: No Pertinent History Respiratory History: No Pertinent History Endocrine Medical History: No Pertinent History Musculoskeletal History: No Pertinent History GI Medical History: No Pertinent History History: No Pertinent History Psycho-Social History: Bipolar Male Reproductive Disorders: No Pertinent History Other Medical History: unsure of psych diagnosis, hx of tbi, pt unsure of cause - Past Surgical History Past Surgical History: No Neuro Surgical History: No Pertinent History Cardiac: No Pertinent History Respiratory: No Pertinent History Gastrointestinal: No Pertinent History Genitourinary: No Pertinent History Musculoskeletal: No Pertinent History Male Surgical History: No Pertinent History Significant Family History: no pertinent family hx - Social History Smoking Status: Current every day smoker How long have you smoked: 3yrs Exposure to second hand smoke: No Drug Use: marijuana Patient Lives Alone: No (grandmother) - Social Determinants of Health Will the patient participate in the screening: Yes Do you worry about a steady place to live?: No Do you have any problems with any of the following?: No known problems In the past 12 months,have you had to go without utilities?: No Transportation Issues: No Has anyone in your support network made you feel unsafe?: No Have you or anyone in your house had to go without enough: No - Nursing Vital Signs Nursing Vital Signs: Initial Vital Signs Temperature 98.6 F 09/09/23 03:26 Pulse Rate 91 H 09/09/23 03:26 Respiratory Rate 18 09/09/23 03:26 Blood Pressure 139/71 09/09/23 03:26 O2 Sat by Pulse Oximetry 97 09/09/23 03:26 Pain Scale Pain Intensity 0 - Physical Exam General Appearance: no apparent distress, alert Eye Exam: PERRL/EOMI, eyes nml inspection Ears, Nose, Throat Exam: normal ENT inspection, TMs normal, pharynx normal, moist mucous membranes Neck Exam: normal inspection, non-tender, supple, full range of motion Respiratory Exam: normal breath sounds, lungs clear, airway intact, No respiratory distress Cardiovascular Exam: regular rate/rhythm, normal heart sounds, normal peripheral pulses Gastrointestinal/Abdomen Exam: soft, normal bowel sounds, No tenderness, No mass Back Exam: normal inspection, normal range of motion, No CVA tenderness, No vertebral tenderness Extremity Exam: normal inspection, normal range of motion, pelvis stable Neurologic Exam: alert, oriented x 3, 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 Patient currently appears to be well. We discussed anxiety management techniques. Occasionally Benadryl may help anxiety for some people. He can buy this [id number]. Patient is aware of this and she will option. Patient otherwise has no complaints. Will discharge patient home. Patient advised to follow-up with his primary care doctor within 48 hours for reevaluation. Portions of this note were created with voice recognition technology. There may be grammatical, spelling, punctuation or sound alike errors Complexity problem addressed is moderate acute complicated. No critical care time. Complexity of data reviewed and analyzed is none. No specialized testing ordered. Diagnosis made based on history and physical examination. Risk of complication and or risk of morbidity/mortality patient management is low. Vital stable. Time spent to discharge patient is approximately 10 minutes. Plan of care established for shared decision making. No social determinants of health present impede follow-up. Portions of this note were created with voice recognition technology. There may be grammatical, spelling, punctuation or sound alike errors 09/09/23 04:04 Counseled pt/family regarding: diagnosis, need for follow-up - Departure Departure Disposition: Home Clinical Impression: Anxiety Condition: Stable Critical Care Time: No Referrals: DOCTOR,NO FAMILY [Primary Care Provider] - Follow up/PCP as directed SILVINO SIERRA MD [ACTIVE STAFF] - Follow up/PCP as directed Additional Instructions: Discharge/Care Plan PRETTYASHLEIGH KUMAR was seen on 09/09/23 in the Emergency Room. The patient was counseled regarding Diagnosis,Lab results, Imaging studies, need for follow up and when to return to the Emergency Room. Prescriptions given: Discharge Note I have spoken with the patient and/or caregivers. I have explained the patient's condition, diagnosis and treatment plan based on the information available to me at this time. I have answered the patient's and/or caregiver's questions and addressed any concerns. The patient and/or caregivers have as good understanding of the patient's diagnosis, condition and treatment plan as can be expected at this point. The vital signs have been stable. The patient's condition is stable and appropriate for discharge from the emergency department. The patient will pursue further outpatient evaluation with the primary care physician or other designated or consulting physician as outlined in the discharge instructions. The patient and/or caregivers are agreeable to this plan of care and follow-up instructions have been explained in detail. The patient a nd/or caregivers have received these instruction. The patient/and or caregivers are aware that any significant change in condition or worsening of symptoms should prompt an immediate return to this or the closest emergency department or call 911.
== END 2023-09-09 04:34 | disposition home or self-care (01) ==
LOC: ED 03:09
DX: F41.9 Anxiety disorder, unspecified (principal); Z72.0 Tobacco use; Z59.01 Sheltered homelessness
CPT/HCPCS: 99281

== ENCOUNTER 2023-10-26 18:19 | Emergency (ER) | payer OTHER ==
[2023-10-26 18:33] VITALS: O2SAT 98
--- NOTE | 2023-10-26 18:33 | ERPHSYRPT ---
- History of Present Illness Time Seen by Provider: 10/26/23 18:27 Historian: patient Exam Limitations: no limitations Physician History: 23-year-old male presents to our ED via EMS for evaluation of abdominal cramping. Patient states symptoms started last night. Patient states that he was having trouble having a bowel movement. No vomiting no diarrhea no rash no fever. Patient reports that in route from [place] patient passed gas "all the way down here". Patient's abdominal pain significantly improved and now he rates it 2-3 out of 10. Patient does not believe he needs to be seen and is requesting discharge. He is requesting that we remove the IV from his arm and let him go home as he is currently not having any active pain. Patient declined pain medication. Patient does not believe he needs to be seen. We will discharge patient AGAINST MEDICAL ADVICE per his request. Portions of this note were created with voice recognition technology. There may be grammatical, spelling, punctuation or sound alike errors Timing/Duration: yesterday Quality: aching Abdominal Pain Onset Location: generalized abdomen Pain Radiation: no radiation Severity of Pain-Max: moderate Severity of Pain-Current: mild Modifying Factors: Improves With: nothing Associated Symptoms: denies symptoms Previous symptoms: no prior history Allergies/Adverse Reactions: shellfish derived Allergy (Verified 08/30/23 13:56) Home Medications: No Reportable Medications [No Reported Medications] 09/09/23 [History] Hx Tetanus, Diphtheria Vaccination/Date Given: Yes Hx Influenza Vaccination/Date Given: No Hx Pneumococcal Vaccination/Date Given: No Travel Risk - Emerging Infectious Disease Are you exhibiting symptoms associated with any current EIDs: No - Review of Systems Constitutional: No Symptoms, No Fever, No Chills Eyes: No Symptoms Ears, Nose, & Throat: No Symptoms Respiratory: No Symptoms, No Cough, No Dyspnea Cardiac: No Symptoms, No Chest Pain, No Edema, No Syncope Abdominal/Gastrointestinal: No Symptoms, No Abdominal Pain, No Nausea, No Vomiting, No Diarrhea Genitourinary Symptoms: No Symptoms, No Dysuria Musculoskeletal: No Symptoms, No Back Pain, No Neck Pain Skin: No Symptoms, No Rash Neurological: No Symptoms, No Dizziness, No Focal Weakness, No Sensory Changes Psychological: No Symptoms Endocrine: No Symptoms Hematologic/Lymphatic: No Symptoms Immunological/Allergic: No Symptoms All Other Systems: Reviewed and Negative - Past Medical History Pertinent Past Medical History: Yes Neurological History: No Pertinent History ENT History: No Pertinent History Cardiac History: No Pertinent History Respiratory History: No Pertinent History Endocrine Medical History: No Pertinent History Musculoskeletal History: No Pertinent History GI Medical History: No Pertinent History History: No Pertinent History Psycho-Social History: Bipolar Male Reproductive Disorders: No Pertinent History Other Medical History: unsure of psych diagnosis, hx of tbi, pt unsure of cause - Past Surgical History Past Surgical History: No Neuro Surgical History: No Pertinent History Cardiac: No Pertinent History Respiratory: No Pertinent History Gastrointestinal: No Pertinent History Genitourinary: No Pertinent History Musculoskeletal: No Pertinent History Male Surgical History: No Pertinent History Significant Family History: no pertinent family hx - Social History Smoking Status: Current every day smoker How long have you smoked: 3yrs Exposure to second hand smoke: No Drug Use: marijuana Patient Lives Alone: No (grandmother) - Social Determinants of Health Will the patient participate in the screening: Yes Do you worry about a steady place to live?: No In the past 12 months,have you had to go without utilities?: No Transportation Issues: No Has anyone in your support network made you feel unsafe?: No Have you or anyone in your house had to go without enough: No - Physical Exam General Appearance: no apparent distress, alert Eye Exam: PERRL/EOMI, eyes nml inspection Ears, Nose, Throat Exam: normal ENT inspection, pharynx normal, moist mucous membranes Neck Exam: normal inspection, non-tender, supple, full range of motion Respiratory Exam: normal breath sounds, lungs clear, airway intact, No respiratory distress Cardiovascular Exam: regular rate/rhythm, normal heart sounds Gastrointestinal/Abdomen Exam: soft, other (No abdominal tenderness), No tenderness, No mass Back Exam: normal inspection, normal range of motion, No CVA tenderness, No vertebral tenderness Extremity Exam: normal inspection, normal range of motion, pelvis stable Neurologic Exam: alert, oriented x 3, cooperative, normal mood/affect, sensation nml, No motor deficits Skin Exam: normal color, warm, dry Lymphatic Exam: No adenopathy SpO2 Interpretation: normal SpO2: 98 O2 Delivery: Room Air - Course Nursing assessment & vital signs reviewed: Yes Ordered Tests: Active Orders 24 hr Category Date Time Status AMA [Release AMA] OM.NOW Care 10/26/23 18:27 Active - Progress Progress: improved Progress Note: 23-year-old male presents to our ED via EMS for evaluation and treatment of intermittent abdominal pain that started yesterday. Patient states he passed gas and route. Abdominal pain essentially resolved. Patient now requesting discharge. He does not believe he needs to be worked up or evaluated further. Patient will be leaving AMA. No workup obtained Patient is of sound mind. Patient is appropriate to make informed and i ndependent medical decisions. Patient understands that leaving AGAINST MEDICAL ADVICE can result in delayed diagnosis, increased risk of morbidity, mortality, short and long-term disability including . In spite of these risks, patient has decided to leave AGAINST MEDICAL ADVICE. Patient understands that he may return to our ED at any point if he reconsiders. Patient agrees to follow-up with his primary care doctor within 48 hours for reevaluation. Patient voices no other complaints or concerns at this time. We will release patient AGAINST MEDICAL ADVICE per their request. Complexity problem addressed is moderate acute complicated. No critical care time. Complex data reviewed and analyzed as noted. No specialist testing ordered. Risk of complication at risk morbidity/mortality patient management is low. Vital stable. Time spent discharge patient is approximately 5 minutes. Portions of this note were created with voice recognition technology. There may be grammatical, spelling, punctuation or sound alike errors 10/26/23 18:31 Counseled pt/family regarding: diagnosis, need for follow-up - Departure Departure Disposition: Home Clinical Impression: Abdominal pain Condition: Stable Critical Care Time: No Referrals: DOCTOR,NO FAMILY [Primary Care Provider] - Follow up/PCP as directed SILVINO SIERRA MD [ACTIVE STAFF] - Follow up/PCP as directed Additional Instructions: Discharge/Care Plan ASHLEIGH OLSEN was seen on 10/26/23 in the Emergency Room. The patient was counseled regarding Diagnosis,Lab results, Imaging studies, need for follow up and when to return to the Emergency Room. Prescriptions given: Discharge Note I have spoken with the patient and/or caregivers. I have explained the patient's condition, diagnosis and treatment plan based on the information available to me at this time. I have answered the patient's and/or caregiver's questions and addressed any concerns. The patient and/or caregivers have as good understanding of the patient's diagnosis, condition and treatment plan as can be expected at this point. The vital signs have been stable. The patient's condition is stable and appropriate for discharge from the emergency department. The patient will pursue further outpatient evaluation with the primary care physician or other designated or consulting physician as outlined in the discharge instructions. The patient and/or caregivers are agreeable to this plan of care and follow-up instructions have been explained in detail. The patient and/or caregivers have received these instruction. The patient/and or caregivers are aware that any significant change in condition or worsening of symptoms should prompt an immediate return to this or the closest emergency department or call 911.
[2023-10-26 18:43] VITALS: BP 140/90; PULSE 80; RESP 18; TEMP 97.8
== END 2023-10-26 18:40 | disposition left against medical advice (07) ==
LOC: ED 18:19
DX: R10.9 Unspecified abdominal pain (principal); Z72.0 Tobacco use
CPT/HCPCS: 99281